=== PATIENT | female | born 1995 | race Caucasian/White ===

== ENCOUNTER 2024-10-02 18:06 | Emergency (ER) | payer BC, SELFPAY ==
[2024-10-02 18:12] VITALS: BP 120/79
[2024-10-02 18:31] LABS: % Basophils 0.3 % (0-2); % Immature Granulocytes 0.3 % (0-0.5); % Lymphocytes 19.3 % (20.5-51.1); % Monocytes 10.6 % (1.7-9.3); % Neutrophils 68.5 % (42.2-75.2); Absolute Eosinophils 0.1 10^3/uL (0-0.7); Absolute Lymphocytes 1.1 10^3/uL (1.2-3.4); Absolute Monocytes 0.6 10^3/uL (0.1-0.6); Hematocrit 42.7 % (37.0-47.0); Hemoglobin 13.9 g/dL (12.0-16.0); Mean Corp Hgb Conc. 32.6 g/dL (33.0-37.0); Mean Platelet Volume 8.7 fL (7.4-10.4); Nucleated Red Blood Cells % 0 %; Platelet Count 274 10^3/uL (130-400); Red Blood Cell Count 4.64 10^6/uL (4.20-5.40); Red Cell Dist. Width 12.4 % (11.5-14.5); White Blood Cell Count 5.8 10^3/uL (4.8-10.8)
[2024-10-02 18:48] LABS: ALT (SGPT) 62 U/L (0-35); AST (SGOT) 54 U/L (14-36); Albumin 4.6 g/dl (3.5-5.0); Alkaline Phosphatase 59 U/L (38-126); Blood Urea Nitrogen 12 mg/dl (7-17); Calcium 9.2 mg/dl (8.4-10.2); Carbon Dioxide 24 mmol/L (22-30); Chloride 101 mmol/L (98-107); Glucose 91 mg/dl (70-99); Lipase 119 U/L (23-300); Potassium 4.4 mmol/L (3.5-5.1); Sodium 135 mmol/L (135-145); Total Bilirubin 0.4 mg/dl (0.2-1.3); Total Protein 7.4 g/dl (6.3-8.2); eGFR > 60.00
[2024-10-02] MEDS: NSS 1000 IV (19:26)
[2024-10-02] MEDS: ZOFRAN 4 MG IV ×2 (19:26→20:09)
--- NOTE | 2024-10-02 19:43 | ED.GENMED ---
History of Present Illness
General
Chief Complaint: Abdominal Symptoms
Source: patient
Exam Limitations: none
Time Seen by Provider: 10/02/24 19:10
History of Present Illness
History of Present Illness:
This is a 29 year old female that comes in with c/o abd pain and vomiting. States that she started with sever abd pain and then vomiting yesterday. States that she vomited to much it was just Bile. States that today she started to feel dizzy with
the abd pain. States she was able to eat a little something but then again vomited. States that she tried to take Zofran around 5pm but vomited right after. State that she has a headache with some vertigo. Denies any fever, chills, chest pain,
SOB, diarrhea, urinary burning.
Past History
Past History
ED Past Medical History: Other (Vertigo); Negative Asthma, HTN, Hypercholesterolemia or NIDDM
ED Past Surgical History: Tonsilectomy
Social History
Tobacco: Non-smoker
Alcohol: None
Personal:
Living: with family
Employment: Employed
Review of Systems
Review of Systems
All Other Systems: ROS reviewed and negative except as documented in HPI and ROS
Constitutional: Reports no symptoms; Denies fever or chills
EENT: Reports no symptoms
Respiratory: Reports no symptoms; Denies cough or trouble breathing
Cardiac: Reports no symptoms; Denies chest pain
ABD/GI: Reports abdominal pain, nausea and vomiting; Denies diarrhea
: Reports no symptoms; Denies dysuria, frequency or urgency
Musculoskeletal: Reports no symptoms
Skin: Reports no symptoms
Neurological: Reports dizzy and headache
Psychiatric: Reports no symptoms
Phy Exam
General Physical Exam
General Presentation: no apparent distress
General age: appears stated age
General Skin: warm and dry
General Habitus: normal
General Mental: alert
General Hydration: dry mucous membranes
ENT Exam
ENT Exam: TM's normal, pharynx normal and neck supple
Eye Exam
Eye Exam: EOMI
Cardiovascular Exam
Cardiovascular Exam: regular rate/rhythm, no edema, no murmur and normal peripheral pulses
Pulmonary Exam
Pulmonary Exam: lungs clear, no respiratory distress, no rales, chest non tender, no crackles, no rhonchi, no wheezing and no cough
Gastrointestinal Exam
Gastrointestinal Exam: non tender, soft, no organomegaly, no pulsatile mass, non distended and other (Hypoactive bowel sounds at this time)
Musculoskeletal Exam
Musculoskeletal Exam: full ROM and no edema
Skin Exam
Skin Exam: normal color, warm/dry, no rash and no petechia
Psychiatric Exam
Psychiatric Exam: normal mood/affect
Course
Orders/Labs/Results
Orders:
Orders
10/02/24 18:19
Complete Blood Count/With Diff Urgent
Comprehensive Metabolic Panel Urgent
HCG, Serum Qualitative Screen Urgent
Comment: ADD ON
Lipase Urgent
10/02/24 19:17
Add On- LAB Urgent
Tests Added?: HCG
0.9% Sodium Chloride 1000 ml [Nss] 1,000 ml IV BOLUS
Ondansetron Injectable [Zofran] 4 mg IV NOW STA
10/02/24 19:49
Ketorolac [Toradol] 30 mg IV NOW STA
Ondansetron Injectable [Zofran] 4 mg IV NOW STA
10/02/24 20:19
Dicyclomine [Bentyl] 10 mg PO NOW STA
Abnormal Lab Results
10/02/24
18:19
MCHC 32.6 L g/dL
(33.0-37.0)
Absolute Lymphs (auto) 1.1 L 10^3/uL
(1.2-3.4)
Lymphocytes % 19.3 L %
(20.5-51.1)
Monocytes % 10.6 H %
(1.7-9.3)
AST 54 H U/L
(14-36)
ALT 62 H U/L
(0-35)
10/02/24 18:19
10/02/24 18:19
AST/ALT slightly elevated. HCG NEGATIVE, lipase NORMAL AT 119
Vital Signs
Initial and Last Documented VS:
Initial Vital Signs
Temp Pulse Resp BP Pulse Ox
98.3 F 80 17 120/79 100
10/02/24 18:12 10/02/24 18:12 10/02/24 18:12 10/02/24 18:12 10/02/24 18:12
Last Documented Vital Signs
Temp Pulse Resp BP Pulse Ox
98.3 F 70 19 118/79 99
10/02/24 18:12 10/02/24 21:02 10/02/24 21:02 10/02/24 21:02 10/02/24 21:02
MDM/Problems Addressed
Differential Diagnosis Includes:
Viral GI syndrome.
MDM/Problems Addressed:
This is a 29 year old female that comes in with c/o abd pain, vomiting and headache. States that this started yesterday and she has not been able to keep anything down.
Will check labs. Give IV fluids. Medicated with Zofran
back to see patient. Patient states that she still is nauseated and has this generalized abd pain. Patient was offered a CT scan but explained that this is most likely the GI virus that is going around. Will give IV Toradol and a second dose of
Zofran.
Patient states that she is feeling better. Has tolerated fluid here. Will discharge home and sent prescription for Zofran to her pharmacy. patient to return with any concerns.
Chronic conditions affecting care:
NA
Acute Exacerbation and/or Progression of Chronic Illness:
NA
*Pulse Oximetry
Patient hypoxic: no
*EKG
Interpreted by ED Provider?: NA
Rate: EKG- N/A
*Motion Picture Projectionist Interpretation
Rate: Motion Picture Projectionist- N/A
*Critical Care Note
Total Time (30-74mins, 75-104mins- exclusive of procedures): Not Applicable
ED Attending Note
-
Portions of this chart may have been created with voice recognition software.� Occasional wrong word or��sound alike� substitutions may have occurred due to the inherent limitations of voice recognition software.
Discharge Plan
Departure
Patient Disposition: Home (Routine Discharge)
Date of Disposition: 10/02/24
Time of Disposition: 21:30
Patient with high blood pressure during this ER visit?: No
Condition: Good
Covid-19: Not Applicable
Discharge Problem:
Nausea & vomiting, Abdominal pain
Instructions: Clear Liquid Diet, Nausea and Vomiting, Adult (DC), Abdominal Pain
Prescriptions:
New
ondansetron 4 mg tablet,disintegrating
4 mg PO Q8H PRN (Reason: nausea and vomiting) Qty: 10 0RF
Referrals:
Elisha Odom MD [Family Provider] - Follow up in 5-7 days
Activity Restrictions/Additional Instructions:
As discussed, your blood work shows that your liver enzymes are slightly elevated. This is most likely the a viral GI syndrome. You have had a prescription for Zofran sent to your Pharmacy. Please continue with sips of liquid to help with hydration.
Follow up with the family doctor in 5-7 days as needed. If you start with any diarrhea, stay away form milk and milk products as this is hard for the gut to digest. Increase your diet as tolerated. IF YOU HAVE ANY OTHER CONCERNS PLEASE RETURN TO
THE EMERGENCY ROOM.
Interventions
Interventions:
*Risk Screen - Suicide Last Done: 10/02/24 18:12
*General Assessment Last Done: 10/02/24 18:12
*Neglect/Abuse Screening Last Done: 10/02/24 18:12
EZ-Zoyjlj-Sznwuxgjun Assessment Last Done: 10/02/24 19:29
Discharge Date and Time
Print Language: [id number]
[2024-10-02 19:49] LABS: HCG, Serum Qualitative Screen Negative
[2024-10-02] MEDS: TORADOL 30 MG IV (20:09)
[2024-10-02] MEDS: BENTYL 10 MG PO (20:36)
[2024-10-02 21:02] VITALS: BP 118/79
== END 2024-10-02 21:38 | disposition home or self-care (01) ==
LOC: EMR 18:06
PROVIDERS: Physician Assistant; EMERGENCY PHYSICIAN Emergency Medicine; FAMILY PHYSICIAN Family Medicine
DX: R11.2 Nausea with vomiting, unspecified (principal); R10.9 Unspecified abdominal pain
CPT/HCPCS: 99284; 96374; 96375; 96376; 96361; 80053; 83690; 84703; 85025